=== PATIENT | female | born 1955 ===

== ENCOUNTER 2017-12-06 08:41 | Day surgery (SDC) | payer MEDICARE, OTHER ==
[2016-07-13 22:17] VITALS: BMI 29.2
[2017-12-06] MEDS ORDERED: Lactated Ringer's 500 ML IV ONE ×2 (09:42→12:40)
[2017-12-06 10:04] VITALS: TEMP 96.9
[2017-12-06] MEDS ORDERED: Midazolam 2 MG/2 ML VIAL ONE (11:56)
[2017-12-06] MEDS ORDERED: Propofol 10 mg/ml Inj (20 ML) ONE ×2 (11:56→12:22)
[2017-12-06 12:57] VITALS: O2SAT 100
[2017-12-06 13:11] VITALS: BP 138/72; PULSE 70; RESP 15
== END 2017-12-06 13:28 | disposition home or self-care (01) ==
LOC: H.ENDO 08:41
PROVIDERS: ATTEND Internal Medicine Gastroenterology
DX: K21.0 Gastro-esophageal reflux disease with esophagitis (principal); K25.3 Acute gastric ulcer without hemorrhage or perforation; K58.9 Irritable bowel syndrome, unspecified; K64.8 Other hemorrhoids; Z12.11 Encounter for screening for malignant neoplasm of colon; E11.9 Type 2 diabetes mellitus without complications; I10 Essential (primary) hypertension; E78.5 Hyperlipidemia, unspecified; Z98.84 Bariatric surgery status
CPT/HCPCS: 43239; 45378; 88305; 88312; 88313; 88342; J2001; J2250; J2704; J7120